=== PATIENT | female | born 1960 | race Two or more races ===

== ENCOUNTER 2024-09-21 10:32 | Emergency (ER) | payer MEDICAID, OTHER ==
[~2024-09-21] VITALS: Ht 160 cm; Wt 83.5 kg
[2024-09-21 10:57] VITALS: BP 152/78; PULSE 80; RESP 17; TEMP 99; O2SAT 97
--- NOTE | 2024-09-21 11:18 | ED.PDOC ---
Eye-HPI HPI Comments 63 F presents to the ER w/ prior MHx of PE x1yr ago, Bilateral knee arthritis x2yrs and the c/c of eye redness. Pt reports on having bilateral eye burning sensation w/ redness/blurred vision mostly to the left eye since July for which is when the pt was prescribed Ofloxacin by her PCP in [place]. Pt notes on not having an eye exam for 2yrs. Denies vision changes Denies eye discharge Denies hearing changes, nausea, vomiting Denies eye pain with movement, eye pain in general, difficulty keeping eye open, feeling of something stuck in the eye, sensitivity to light Chief Complaint: Eye Problem Time Seen by MD: 11:00 Reviewed Notes: Nurses Notes, Medications, Allergies Allergies: Coded Allergies: NO KNOWN ALLERGIES (Unverified , 09/21/24) Information Source: Patient Mode of Arrival: Ambulatory Timing: Months Duration: Since onset Prehospital treatment: None Quality: Red Eye Location: Bilateral (mostly left eye) Lids: Normal Cornea: Normal Pupils: Normal EOM: Normal Fundus: Normal Anterior chamber: Normal Mouth: Normal ENT Ear Exam: Normal Nose: Normal Sinuses: Normal Oropharynx: Normal Onset: Spontaneous Throat Exposed to: None Eye Context Recent: Antibiotic Use (Ofloxacin) History of: None Associated signs and symptoms: None Past Medical History PAST MEDICAL HISTORY: Arthritis (Bilateral Knees), PE (x1yr ago was informed) Surgical History: Denies all surgeries HOME HEALTH CARE PHYSICIAN History: No Pertinent HOME HEALTH CARE PHYSICIAN History Family History Family History: Reviewed,noncontributory to illness, Unknown Social History Smoker: Non-Smoker Alcohol: Denies ETOH Use Drugs: Denies Drug Use Lives In: Home Constitutional: denies: chills, diaphoresis, fatigue, fever, malaise, sweats, w eakness, others EENTM: reports: blurred vision, eye pain (burning sensation), eye redness; denies: double vision, ear bleeding, ear discharge, ear drainage, ear pain, ear ringing, hearing loss, mouth pain, mouth swelling, nasal discharge, nose bleeding, nose congestion, nose pain, photophobia, tearing, throat pain, throat swelling, voice changes, others Respiratory: denies: cough, hemoptysis, orthopnea, SOB at rest, shortness of breath, SOB with excertion, stridor, wheezing, others Cardiovascular: denies: chest pain, dizzy spells, diaphoresis, Dyspnea on exertion, edema, irregular heart beat, left arm pain, lightheadedness, palpita tions, PND, syncope, others Gastrointestinal: denies: abdomen distended, abdominal pain, blood streaked barney wels, constipated, diarrhea, dysphagia, difficulty swallowing, hematemesis, melena, nausea, poor appetite, poor fluid intake, rectal bleeding, rectal pain, vomiting, others Genitourinary: denies: abnormal vagina bleeding, burning, dyspareunia, dysuria, flank pain, frequency, hematuria, incontinence, pain, , vagina discharge, urgency, others Neurological: denies: dizziness, fainting, headache, left sided numbness, left sided weakness, numbness, paresthesia, pre-existing deficit, right sided numbness, right sided weakness, seizure, speech problems, tingling, tremors, weakness, others Musculoskeletal: denies: back pain, gout, joint pain, joint swelling, muscle pain, muscle stiffness, neck pain, others Integumetry: denies: bruises, change in color, change in hair/nails, dryness, laceration, lesions, lumps, rash, wounds, others Allergic/Immunocompromised: denies: Difficulty Healing, Frequent Infections, Hives, Itching, others Hematologic/Lymphatic: denies: anemia, blood clots, easy bleeding, easy bruis ing, swollen glands, others Endocrine: denies: excessive hunger, excessive sweating, excessive thirst, exc essive urination, flushing, intolerance to cold, intolerance to heat, unexplained weight gain, unexplained weight loss, others Psychiatric: denies: anxiety, bipolar disorder, depression, hopeless, panic disorder, schizophrenia, sleepless, suicidal, others All Other Systems: Reviewed and Negative Physical Exam General Appearance: No Apparent Distress, Normal HEENT: Normal ENT Inspection, Pharynx Normal, TMs Normal, Other (no foreign body, no hyphema, mild conjunctival injection, pupils are reactive bilaterally) Neck: Full Range of Motion, Non-Tender, Normal, Normal Inspection Respiratory: Chest Non-Tender, Lungs Clear, No Accessory Muscle Use, No Respiratory Distress, Normal Breath Sounds Cardiovascular: No Murmur, No Gallop, Regular Rate/Rhythm Breast Exam: Deferred Gastrointestinal: No Organomegaly, Non Tender, No Pulsatile Mass, Normal Bowel Sounds, Soft Genitalia: Deferred Pelvic: Deferred Rectal: Deferred Extremities: No calf tenderness, Normal capillary refill, Normal inspection, Normal range of motion, Non-tender, No pedal edema Musculoskeletal : Apperance: Normal Neurologic: Alert, 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 Was a procedure done?: No EENT DIFF Eye: Viral, Glaucoma, Other X-Ray, Labs, Meds, VS Vital Signs Date Time Temp Pulse Resp B/P (MAP) Pulse Ox O2 Delivery O2 Flow Rate FiO2 09/21/24 10:57 99.0 80 17 152/78 (102) 97 99.0 X-Ray, Labs, Meds, VS Comment 63F presents to the ER w/ prior MHx of PE x1yr ago, Bilateral knee arthritis x2yrs and the c/c of eye redness. Patient arrives alert and oriented, ABC's intact, afebrile, vital signs stable, saturating well in room air Differential diagnosis considered includes: corneal abrasion, uveitis, foreign body, retinal detachment unlikey given age and no history flashes nor floaters. Patient alert, vss, well appearing. PERRLA, EOMI, visual acuity not affected. No evidence of foreign body, globe rupture, iritis, conjunctivitis or any other process requiring immediate medical or surgical intervention at this time. IOP: R: 14 L 16 Slit lamp exam with no evidence of corneal abrasion Consulted with warranty clerk Dr. Palomo at [facility] and advised pt should F/u with Optometry. Transfer declined at 13:05 Patient is stable for discharge at this time. External notes reviewed. Test results and diagnostic imaging interpreted. All diagnostic findings, discharge care, education and instructions provided Follow-up with PCP in 2 to 3 days Patient verbalized understanding and agreed to treatment plan Vital signs stable, afebrile, no acute distress noted Patient ambulatory with strong steady gait Advised to return precautions for any new or worsening symptoms, return to ER immediately for re-evaluation Patient is aware that the purpose of this visit was for an acute medical emergency requiring emergent stabilization. Chronic conditions, including malignancies have not been ruled out. Patient is instructed to follow up with PCP as directed and discharge instructions for continued care and workup. If unable to arrange follow-up, patient is to return to the emergency department for reassessment. Patient (parent or legal guardian if applicable) was given verbal and written discharge instructions and acknowledges understanding. Time of 1ST Reevaluation: 11:30 Reevaluation 1ST: Unchanged Patient Education/Counseling: Diagnosis, Treatment, Prognosis Family Education/Counseling: No Family Present SEPSIS Sepsis Screen Vital Signs Date Time Temp Pulse Resp B/P (MAP) Pulse Ox O2 Delivery O2 Flow Rate FiO2 09/21/24 10:57 99.0 80 17 152/78 (102) 97 99.0 Departure 1 Departure Time of Disposition: 13:05 Impression: Primary Impression: Vision impairment Disposition: 01 HOME / SELF CARE / HOMELESS Condition: Stable Discharged With: Self Critical Care Note Critical Care Time?: No Stability Stability form required: No Heart Score Heart Score: Heart Score Response (Comments) Value History N/A 0 EKG N/A 0 Age N/A 0 Risk Factors N/A 0 Troponin N/A 0 Total 0 I personally scribed for CELY CUMMINGS NP ([email or web address]) on 09/21/24 at 11:18. Electronically submitted by Kavon Key ([email or web address]). CELY CUMMINGS NP Sep 21, 2024 11:18
== END 2024-09-21 13:15 | disposition home or self-care (01) ==
LOC: ER 10:32
DX: H54.7 Unspecified visual loss (principal); M17.2 Bilateral post-traumatic osteoarthritis of knee; Z88.1 Allergy status to other antibiotic agents